=== PATIENT | male | born 1990 | race Caucasian/White ===

== ENCOUNTER 2016-03-01 11:47 | Emergency (ER) | payer OTHER ==
--- NOTE | 2016-03-01 13:12 | EDDOCDS ---
Nurse's Notes [facility] Name: Abel Cedeño Age: 25 yrs Sex: Male : 1990 Arrival Date: 03/01/2016 Time: 11:47 Bed TR7 Private MD: No Pcp Diagnosis: Acute nasopharyngitis [common cold] Presentation: 03/01 11:51 Presenting complaint: Patient states: he has had a sore throat and stuffy nose for a kcs couple of days. Risk factors: Stridor is not present. Drooling is not present. Shortness of breath is not present. Cellulitis is not present. Adult Sepsis Screening: The patient does not have new or worsening altered mentation. Patient's respiratory rate is less than 22. Systolic blood pressure is greater than 100. Patient has a qSOFA score of 0- Negative Sepsis Screen. Suicide/Homicide risk assessment- the patient denies having any suicidal and/or homicidal ideations and does not present with any other emotional, behavioral or mental health complaints. Status: Patient is not a guest services attendant or dependent. Transition of care: patient was not received from another setting of care. 11:51 Acuity: PINKY Level 4 kcs 11:51 Method Of Arrival: Walkin/Carried/Asstd kcs Triage Assessment: 11:52 General: Appears comfortable, well developed, well nourished, well groomed, Behavior is kcs cooperative, pleasant. Pain: Location: throat Pain currently is 8 out of 10 on a pain scale. HIV screening NA for this visit Offered previously. Neurological: Level of Consciousness is awake, alert. Respiratory: Airway is patent Respiratory effort is even, unlabored, Respiratory pattern is regular, symmetrical. Derm: Skin is intact, is healthy with good turgor, Skin is dry, Skin is normal. Historical: - Allergies: No known drug Allergies; - Home Meds: 1. none - PMHx: none; - PSHx: Surgical scar on right hip from unknown surgery as infant; - Social history: Smoking status: Patient states was never smoker of tobacco. No barriers to communication noted, The patient speaks fluent Armenian. - : The pt / caregiver states he / she is not on anticoagulants. Home medication list is obtained from the patient. - Exposure Risk Screening:: None identified. Vital Signs: 11:48 BP 138 / 71; Pulse 93; Resp 16; Temp 98.9; Pulse Ox 99% ; Weight 83.91 kg; Height 5 ft. cmb 9 in. (175.26 cm); Pain 8/10; 11:48 Body Mass Index 27.32 (83.91 kg, 175.26 cm) cmb Vitals: 11:48 Log In Time: March 01, 2016 at 11:47. cmb ED Course: 11:48 Patient visited by Mikaela Barlow. cmb 11:48 Patient moved to Waiting cmb 11:50 Patient moved to Pre RCE cmb 11:52 Triage Initiated kcs 11:54 No Pcp is Private Physician. cmb 12:36 Patient moved to Triage 2 ar3 12:37 Nando Ward PA is PHCP. btw 12:37 Sol Botello MD is Attending Physician. btw 12:37 Patient visited by Nando Ward PA. btw 12:54 Patient name changed from Abel\S\Irvin\S\Davidson\S\ to Abel\S\Dima\S\Davidson. EDMS 12:55 [place] [place] was scanned into [employer] and attached to record. pm4 13:11 Patient moved to TR7 ar3 Order Results: There are currently no results for this order. Outcome: 12:45 Discharge ordered by Provider. btw 13:12 Patient left the ED. maurice Signatures: Dispatcher [employer] EDMS Munira Daniels RN RN kcs Ashley Gray, SPIRAL WINDING MACHINE HELPER SPIRAL WINDING MACHINE HELPER ar3 Nando Ward PA PA btw Mikaela Barlow cmb Andrea Randle, Reg Reg pm4 MTDD
--- NOTE | 2016-03-01 13:12 | EDDOCDS ---
Physician Documentation [facility] Name: Abel Cedeño Age: 25 yrs Sex: Male : 1990 Arrival Date: 03/01/2016 Time: 11:47 Bed TR7 Private MD: No Pcp Disposition: 03/01/16 12:45 Discharged to Home/Self Care. Impression: Acute nasopharyngitis [common cold]. - Condition is Stable. - Discharge Instructions: Upper Respiratory Infection, Adult, Viral Infections, Cool Mist Vaporizers. - Medication Reconciliation, Local Pharmacy Hours form. - Follow up: Private Physician; When: Call to arrange an appointment; Reason: Further diagnostic work-up, Recheck today's complaints, Continuance of care. - Problem is new. - Symptoms are unchanged. Historical: - Allergies: No known drug Allergies; - Home Meds: 1. none - PMHx: none; - PSHx: Surgical scar on right hip from unknown surgery as infant; - Social history: Smoking status: Patient states was never smoker of tobacco. No barriers to communication noted, The patient speaks fluent Welsh. - : The pt / caregiver states he / she is not on anticoagulants. Home medication list is obtained from the patient. - Exposure Risk Screening:: None identified. Vital Signs: 03/01 11:48 BP 138 / 71; Pulse 93; Resp 16; Temp 98.9; Pulse Ox 99% ; Weight 83.91 kg / 184.99 lbs; cmb Height 5 ft. 9 in. (175.26 cm); Pain 8/10; 11:48 Body Mass Index 27.32 (83.91 kg, 175.26 cm) cmb MDM: 12:55 [facility] Payment Agreement was scanned into [employer] and attached to record. pm4 12:55 Financial registration complete. pm4 Signatures: Munira Daniels RN RN Nando Camara PA PA btw Andrea Randle, Reg Reg pm4 The chart was reviewed and I authenticate all verbal orders and agree with the evaluation and treatment provided.Attachments: 12:55 [place] [place] pm4 MTDD
--- NOTE | 2016-03-03 14:13 | EDDOCDS ---
Physician Documentation [facility] Name: Abel Cedeño Age: 25 yrs Sex: Male : 1990 Arrival Date: 03/01/2016 Time: 11:47 Bed TR7 Private MD: No Pcp Disposition: 03/01/16 12:45 Discharged to Home/Self Care. Impression: Acute nasopharyngitis [common cold]. - Condition is Stable. - Discharge Instructions: Upper Respiratory Infection, Adult, Viral Infections, Cool Mist Vaporizers. - Medication Reconciliation, Local Pharmacy Hours form. - Follow up: Private Physician; When: Call to arrange an appointment; Reason: Further diagnostic work-up, Recheck today's complaints, Continuance of care. - Problem is new. - Symptoms are unchanged. Historical: - Allergies: No known drug Allergies; - Home Meds: 1. none - PMHx: none; - PSHx: Surgical scar on right hip from unknown surgery as infant; - Social history: Smoking status: Patient states was never smoker of tobacco. No barriers to communication noted, The patient speaks fluent Serbian. - Family history: Not pertinent. - : The pt / caregiver states he / she is not on anticoagulants. Home medication list is obtained from the patient. - Exposure Risk Screening:: None identified. Vital Signs: 03/01 11:48 BP 138 / 71; Pulse 93; Resp 16; Temp 98.9; Pulse Ox 99% ; Weight 83.91 kg / 184.99 lbs; cmb Height 5 ft. 9 in. (175.26 cm); Pain 8/10; 11:48 Body Mass Index 27.32 (83.91 kg, 175.26 cm) cmb MDM: 12:55 [facility] [place] was scanned into [employer] and attached to record. pm4 12:55 Financial registration complete. pm4 03/02 09:37 T-Sheet-- Draft Copy was scanned into [employer] and attached to record. gb Signatures: Munira Daniels RN RN Micheline Castellanos, Reg Reg gb Nando Ward PA PA btw Andrea Randle, Reg Reg pm4 The chart was reviewed and I authenticate all verbal orders and agree with the evaluation and treatment provided.Attachments: 03/01 12:55 [facility] Payment Agreement pm4 03/02 09:37 T-Sheet-- Draft Copy gb Chart Complete MTDD
--- NOTE | 2016-03-03 14:13 | EDDOCDS ---
Physician Documentation [facility] Name: Abel Cedeño Age: 25 yrs Sex: Male : 1990 Arrival Date: 03/01/2016 Time: 11:47 Bed TR7 Private MD: No Pcp Disposition: 03/01/16 12:45 Discharged to Home/Self Care. Impression: Acute nasopharyngitis [common cold]. - Condition is Stable. - Discharge Instructions: Upper Respiratory Infection, Adult, Viral Infections, Cool Mist Vaporizers. - Medication Reconciliation, Local Pharmacy Hours form. - Follow up: Private Physician; When: Call to arrange an appointment; Reason: Further diagnostic work-up, Recheck today's complaints, Continuance of care. - Problem is new. - Symptoms are unchanged. Historical: - Allergies: No known drug Allergies; - Home Meds: 1. none - PMHx: none; - PSHx: Surgical scar on right hip from unknown surgery as infant; - Social history: Smoking status: Patient states was never smoker of tobacco. No barriers to communication noted, The patient speaks fluent Welsh. - Family history: Not pertinent. - : The pt / caregiver states he / she is not on anticoagulants. Home medication list is obtained from the patient. - Exposure Risk Screening:: None identified. Vital Signs: 03/01 11:48 BP 138 / 71; Pulse 93; Resp 16; Temp 98.9; Pulse Ox 99% ; Weight 83.91 kg / 184.99 lbs; cmb Height 5 ft. 9 in. (175.26 cm); Pain 8/10; 11:48 Body Mass Index 27.32 (83.91 kg, 175.26 cm) cmb MDM: 12:55 [facility] [place] Payment Agreement was scanned into [employer] and attached to record. pm4 12:55 Financial registration complete. pm4 03/02 09:37 T-Sheet-- Draft Copy was scanned into [employer] and attached to record. gb Signatures: Munira Daniels RN RN Micheline Castellanos, Reg Reg gb Nando Ward PA PA btw Andrea Randle, Reg Reg pm4 The chart was reviewed and I authenticate all verbal orders and agree with the evaluation and treatment provided.Attachments: 03/01 12:55 [facility] Payment Agreement pm4 03/02 09:37 T-Sheet-- Draft Copy gb Chart Complete MTDD
--- NOTE | 2016-03-03 14:13 | EDDOCDS ---
Nurse's Notes [facility] Name: Abel Cedeño Age: 25 yrs Sex: Male : 1990 Arrival Date: 03/01/2016 Time: 11:47 Bed TR7 Private MD: No Pcp Diagnosis: Acute nasopharyngitis [common cold] Presentation: 03/01 11:51 Presenting complaint: Patient states: he has had a sore throat and stuffy nose for a kcs couple of days. Risk factors: Stridor is not present. Drooling is not present. Shortness of breath is not present. Cellulitis is not present. Adult Sepsis Screening: The patient does not have new or worsening altered mentation. Patient's respiratory rate is less than 22. Systolic blood pressure is greater than 100. Patient has a qSOFA score of 0- Negative Sepsis Screen. Suicide/Homicide risk assessment- the patient denies having any suicidal and/or homicidal ideations and does not present with any other emotional, behavioral or mental health complaints. Status: Patient is not a service delivery consultant or dependent. Transition of care: patient was not received from another setting of care. 11:51 Acuity: PINKY Level 4 kcs 11:51 Method Of Arrival: Walkin/Carried/Asstd kcs Triage Assessment: 11:52 General: Appears comfortable, well developed, well nourished, well groomed, Behavior is kcs cooperative, pleasant. Pain: Location: throat Pain currently is 8 out of 10 on a pain scale. HIV screening NA for this visit Offered previously. Neurological: Level of Consciousness is awake, alert. Respiratory: Airway is patent Respiratory effort is even, unlabored, Respiratory pattern is regular, symmetrical. Derm: Skin is intact, is healthy with good turgor, Skin is dry, Skin is normal. Historical: - Allergies: No known drug Allergies; - Home Meds: 1. none - PMHx: none; - PSHx: Surgical scar on right hip from unknown surgery as infant; - Social history: Smoking status: Patient states was never smoker of tobacco. No barriers to communication noted, The patient speaks fluent Kinyarwanda. - Family history: Not pertinent. - : The pt / caregiver states he / she is not on anticoagulants. Home medication list is obtained from the patient. - Exposure Risk Screening:: None identified. Screenin:10 Screening information is obtained from the patient. Fall risk: No risks identified. kcs Assistance ADL's: requires no assistance with activities of daily living. Abuse/DV Screen: The patient / caregiver reports he/she is: not in a situation that causes fear, pain or injury. Nutritional screening: No deficits noted. Advance Directives: Currently, there is no health care proxy. home support is adequate. Assessment: 13:10 General: Appears comfortable, well developed, well nourished, well groomed, Behavior is kcs cooperative, pleasant. Pain: Complains of pain in throat. Awake, alert, oriented. Skin warm and dry. Moves all extremities. Respirations unlabored. No apparent distress. The patient / caregiver is instructed regarding the plan of care and ED course. Physical assessment to be completed by PA/EDMD. 13:10 EENT: hoarse voice. kcs Vital Signs: 11:48 BP 138 / 71; Pulse 93; Resp 16; Temp 98.9; Pulse Ox 99% ; Weight 83.91 kg; Height 5 ft. cmb 9 in. (175.26 cm); Pain 8/10; 11:48 Body Mass Index 27.32 (83.91 kg, 175.26 cm) cmb Vitals: 11:48 Log In Time: March 01, 2016 at 11:47. cmb ED Course: 11:48 Patient visited by Mikaela Barlow. cmb 11:48 Patient moved to Waiting cmb 11:50 Patient moved to Pre RCE cmb 11:52 Triage Initiated kcs 11:54 No Pcp is Private Physician. cmb 12:36 Patient moved to Triage 2 ar3 12:37 Nando Ward PA is PHCP. btw 12:37 Sol Botello MD is Attending Physician. btw 12:37 Patient visited by Nando Ward PA. btw 12:54 Patient name changed from Abel\S\Irvin\S\Davidson\S\ to Abel\S\Dima\S\Davidson. EDMS 12:55 [facility] [place] was scanned into [employer] and attached to record. pm4 13:10 Patient has correct armband on for positive identification. kcs 13:10 No IV's were initiated during this patient's visit. No procedures done that require kcs assistance. 13:11 Patient moved to TR7 ar3 03/02 09:37 T-Sheet-- Draft Copy was scanned into [employer] and attached to record. gb Order Results: There are currently no results for this order. Outcome: 03/01 12:45 Discharge ordered by Provider. btw 13:10 The following High Risk Discharge criteria are identified: None. Discharged to home kcs ambulatory. Condition: stable. Discharge instructions given to patient, Instructed on discharge instructions, follow up and referral plans. Demonstrated understanding of instructions, Pt was receptive of discharge instructions/ teaching. No special radiology studies were completed. 13:10 Discharge Assessment: Patient awake, alert and oriented x 3. No cognitive and/or kcs functional deficits noted. Patient verbalized understanding of disposition instructions. Patient awake and alert. patient administered narcotics - no. The following High Risk Discharge criteria are identified: None. Discharged to home ambulatory. Property sent home with patient. 13:12 Patient left the ED. kcs Signatures: Dispatcher [employer] EDMunira Ramirez RN RN kcs Micheline Zuluaga, Reg Reg gb Ashley Gray, ALL SOURCE INTELLIGENCE ANALYST ALL SOURCE INTELLIGENCE ANALYST ar3 Nando Ward, AMBROCIO PA btw Mikaela Barlow cmb Andrea Randle, Reg Reg pm4 Corrections: (The following items were deleted from the chart) 19:16 19:15 EENT: hoarse voice. maurice richards Chart Complete MTDD
== END 2016-03-01 13:12 | disposition home or self-care (01) ==
LOC: M ED 11:47
DX: J06.9 Acute upper respiratory infection, unspecified (principal); B34.9 Viral infection, unspecified

== ENCOUNTER 2016-05-15 19:20 | Emergency (ER) | payer OTHER ==
[~2016-05-15] VITALS: Ht 172.7 cm; Wt 97.5 kg
[2016-05-15 19:21] VITALS: BP 129/74
== END 2016-05-15 20:05 | disposition left against medical advice (07) ==
LOC: M ED 20:04
DX: H92.09 Otalgia, unspecified ear (principal); Z53.21 Procedure and treatment not carried out due to patient leaving prior to being seen by health care provider

== ENCOUNTER 2018-04-27 03:44 | Emergency (ER) | payer OTHER ==
[~2018-04-27] VITALS: Ht 167.6 cm; Wt 97.3 kg
[2018-04-27] MEDS ORDERED: KETOROLAC 30 MG/ML VIAL (J1885) IV ONE (05:45)
[2018-04-27] MEDS ORDERED: NS 1,000 ML IV ONE (05:45)
[2018-04-27] MEDS ORDERED: ONDANSETRON 4MG/2ML VIAL (J2405) IV ONE (05:45)
[2018-04-27 06:12] LABS: BASO % 0.5 % (0.0-1.0); EOS # 0.2 10^3/uL (0.0-0.50); EOS % 2.2 % (0.0-3.0); HEMATOCRIT 42.8 % (42.0-52.0); HEMOGLOBIN 14.6 g/dl (13.5-17.5); LYMPH # 2.8 10^3/uL (1.5-6.5); LYMPH % 32.1 % (24.0-44.0); MEAN CORPUSCULAR HEMOGLOBIN 30.7 pg (27.0-33.0); MEAN CORPUSCULAR HGB CONC 34.1 g/dl (32.0-36.5); MEAN CORPUSCULAR VOLUME 89.9 fl (80.0-96.0); MONO # 0.5 10^3/uL (0.0-0.8); MONO % 5.6 % (0.0-5.0); NEUTROPHILS # 5.2 10^3/uL (1.8-7.7); NEUTROPHILS % 59.1 % (36.0-66.0); PLATELET COUNT, AUTOMATED 306 10^3/uL (150-450); RED BLOOD COUNT 4.76 10^6/uL (4.30-6.10); WHITE BLOOD COUNT 8.8 10^3/uL (4.0-10.0)
[2018-04-27 06:37] LABS: ALBUMIN 3.9 GM/DL (3.2-5.2); ALT/SGPT 36 U/L (12-78); BILIRUBIN,DIRECT 0.2 MG/DL (0.0-0.2); BILIRUBIN,TOTAL 0.7 MG/DL (0.2-1.0); BLOOD UREA NITROGEN 14 MG/DL (7-18); CARBON DIOXIDE LEVEL 29 MEQ/L (21-32); CHLORIDE LEVEL 107 MEQ/L (98-107); CREATININE FOR GFR 0.76 MG/DL (0.70-1.30); GLOMERULAR FILTRATION RATE > 60.0 (>60); GLUCOSE, FASTING 106 MG/DL (70-100); LIPASE 108 U/L (73-393); POTASSIUM SERUM 4.1 MEQ/L (3.5-5.1); SODIUM LEVEL 142 MEQ/L (136-145); TOTAL PROTEIN 7.2 GM/DL (6.4-8.2)
[2018-04-27] MEDS ORDERED: ISOVUE-370 76% 100ML VIAL (Q9967) As Ordered ONE (06:43)
--- NOTE | 2018-04-27 07:37 | REPVR ---
EXAM: CT Abdomen and Pelvis With Contrast EXAM DATE/TIME: 04/27/2018 6:39 AM CLINICAL HISTORY: 27 years old, male; Pain; Abdominal pain; Localized; Left lower quadrant (llq); Additional info: Llq abd pain TECHNIQUE: Axial computed tomography images of the abdomen and pelvis with intravenous contrast. All CT scans at this facility use at least one of these dose optimization techniques: automated exposure control; mA and/or kV adjustment per patient size (includes targeted exams where dose is matched to clinical indication); or iterative reconstruction. Coronal and sagittal reformatted images were created and reviewed. CONTRAST: Contrast Material: 100 ml of iso; Contrast Route: ac COMPARISON: No relevant prior studies available. FINDINGS: Lower thorax: No acute findings. ABDOMEN: Liver: Normal. No mass. Gallbladder and bile ducts: Normal. No calcified stones. No ductal dilation. Pancreas: Normal. No ductal dilation. Spleen: Normal. No splenomegaly. Adrenals: Normal. No mass. Kidneys and ureters: Normal. No hydronephrosis. Stomach and bowel: The colon is underdistended limiting its evaluation. There is mild descending colonic mild intramural infiltration with fat. There is questionable mild increased vascularity to the descending and rectosigmoid colon. Appendix: No evidence of appendicitis. PELVIS: Bladder: Unremarkable as visualized. Reproductive: Unremarkable as visualized. ABDOMEN and PELVIS: Intraperitoneal space: Normal. No free air. No significant fluid collection. Bones/joints: No acute fracture. No dislocation. Soft tissues: There is a small bilateral fat containing inguinal hernias. Vasculature: Normal. No abdominal aortic aneurysm. Lymph nodes: There are shotty small mesenteric lymph nodes. IMPRESSION: 1. Bilateral fat containing inguinal hernias. 2. Nonspecific mild descending colon intramural infiltration with fat coupled with questionable mild increase vascularity in the descending and rectosigmoid colon. Correlate clinically for chronic inflammatory colonic process such as IBD. 3. Nonspecific shotty mesenteric lymph nodes. These could be secondary to enteritis. Electronically signed by: Timothy Younger On 04/27/2018 07:37:28 AM
[2018-04-27 08:30] VITALS: BP 118/60
== END 2018-04-27 08:50 | disposition home or self-care (01) ==
LOC: M ED 03:44
DX: R10.9 Unspecified abdominal pain (principal)
CPT/HCPCS: 36415; 74177; 80048; 80076; 83690; 85025; 93041; 96374; 96375; 99284; J1885; J2405; Q9967

== ENCOUNTER → 2019-03-13 | Outpatient (REF) | payer OTHER ==
[2019-03-13 12:20] LABS: SEMEN APPEARANCE OPAQUE (OPAQUE); SEMEN VISCOSITY LIQUID (LIQUID); SEMEN VOLUME 3.3 ml (2.0-5.0); SEMEN pH 8.5 (7.0-8.0); SPERM CONCENTRATION 23.6 M/ml (>=15.0); WBC CONCENTRATION >1 M/ml (<=1 M/ml)
== END ==
LOC: M SMT 12:05
PROVIDERS: ATTEND Nurse Practitioner Family
DX: N46.9 Male infertility, unspecified (principal)

== ENCOUNTER → 2019-10-04 | Outpatient (REF) | payer OTHER | LOC: M LAB REF 08:34 | PROVIDERS: ATTEND Physician Assistant | DX: Z03.818 Encounter for observation for suspected exposure to other biological agents ruled out (principal); Z11.59 Encounter for screening for other viral diseases ==

== ENCOUNTER 2019-10-26 09:53 | Observation (INO) | payer OTHER ==
[~2019-10-26] VITALS: Ht 175.3 cm; Wt 104.9 kg
[2019-10-26 10:04] VITALS: BP 143/63
[2019-10-26] MEDS ORDERED: METOCLOPRAMIDE INJ 10MG/2ML VIAL (J2765 PER 1) IV ONE (10:15)
[2019-10-26 10:34] LABS: BASO % 0.3 % (0.0-1.0); EOS # 0.2 10^3/uL (0.0-0.5); EOS % 2.5 % (0.0-3.0); HEMATOCRIT 46.9 % (42.0-52.0); LYMPH # 2.2 10^3/uL (1.5-5.0); LYMPH % 24.6 % (24.0-44.0); MEAN CORPUSCULAR HEMOGLOBIN 30.2 pg (27.0-33.0); MEAN CORPUSCULAR HGB CONC 34.1 g/dl (32.0-36.5); MEAN CORPUSCULAR VOLUME 88.7 fl (80.0-96.0); MONO # 0.6 10^3/uL (0.0-0.8); MONO % 6.5 % (0.0-5.0); NEUTROPHILS # 5.8 10^3/uL (1.5-8.5); NEUTROPHILS % 65.8 % (36.0-66.0); PLATELET COUNT, AUTOMATED 339 10^3/uL (150-450); RED BLOOD COUNT 5.29 10^6/uL (4.30-6.10); WHITE BLOOD COUNT 8.8 10^3/uL (4.0-10.0)
--- NOTE | 2019-10-26 10:52 | REPVR ---
PROCEDURE INFORMATION: Exam: CT Head Without Contrast Exam date and time: 10/26/2019 10:24 AM Age: 28 years old Clinical indication: Other: Found unresponsive TECHNIQUE: Imaging protocol: Computed tomography of the head without contrast. Radiation optimization: All CT scans at this facility use at least one of these dose optimization techniques: automated exposure control; mA and/or kV adjustment per patient size (includes targeted exams where dose is matched to clinical indication); or iterative reconstruction. COMPARISON: No relevant prior studies available. FINDINGS: Brain: No hemorrhage. Unremarkable white matter. No mass effect. Ventricles: No ventriculomegaly. Bones/joints: No acute fracture. Sinuses: Visualized sinuses are unremarkable. No fluid levels. Mastoid air cells: Visualized mastoid air cells are well aerated. Soft tissues: Unremarkable. IMPRESSION: No acute intracranial abnormality. Electronically signed by: Jim Mcclain On 10/26/2019 10:52:25 AM
[2019-10-26 11:07] LABS: ALT/SGPT 61 U/L (12-78); BILIRUBIN,DIRECT 0.2 MG/DL (0.0-0.2); BILIRUBIN,TOTAL 0.9 MG/DL (0.2-1.0); BLOOD UREA NITROGEN 14 MG/DL (7-18); CALCIUM LEVEL 9.9 MG/DL (8.5-10.1); CARBON DIOXIDE LEVEL 29 MEQ/L (21-32); CHLORIDE LEVEL 106 MEQ/L (98-107); CREATININE FOR GFR 0.82 MG/DL (0.70-1.30); GLOMERULAR FILTRATION RATE > 60.0 (>60); GLUCOSE, FASTING 104 MG/DL (70-100); POTASSIUM SERUM 3.9 MEQ/L (3.5-5.1); SODIUM LEVEL 141 MEQ/L (136-145); TOTAL PROTEIN 7.9 GM/DL (6.4-8.2)
[2019-10-26 11:08] LABS: ACETAMINOPHEN LEVEL < 2.0 UG/ML (10.0-30.0); ALBUMIN 4.2 GM/DL (3.2-5.2); ETHYL ALCOHOL (ETHANOL) < 0.003 % (0.000-0.010); SALICYLATE LEVEL < 1.7 MG/DL (5.0-30.0)
--- NOTE | 2019-10-26 12:49 | REPVR ---
PROCEDURE INFORMATION: Exam: MR Head Without Contrast Exam date and time: 10/26/2019 12:00 PM Age: 28 years old Clinical indication: Other: Headache/unresponsive TECHNIQUE: Imaging protocol: MR of the head without contrast. COMPARISON: CT Head without contrast 10/26/2019 10:18 AM FINDINGS: Limitations: Study is degraded by patient motion artifact. Brain: There is questionable cortical restricted diffusion diffusely throughout both cerebral hemispheres, perhaps best seen in the right occipital lobe on image 19. While this study motion degraded, there is likely concomitant mild cortical edema. No evidence of acute hemorrhage. Ventricles: No ventriculomegaly. Bones/joints: Unremarkable. Sinuses: Mild paranasal sinus mucosal thickening. Mastoid air cells: No mastoid effusion. Orbits: Unremarkable. Soft tissues: Unremarkable. IMPRESSION: Questionable mild cortical restricted diffusion bilaterally, likely with mild cortical edema. This is nonspecific and can be seen in the setting of early anoxic brain injury, seizure related edema, and other etiologies. If the patient remains unresponsive, would consider short interval follow-up MRI. Electronically signed by: Jim Mcclain On 10/26/2019 12:48:45 PM
--- NOTE | 2019-10-26 13:50 | REPVR ---
PROCEDURE INFORMATION: Exam: MR Angiogram Head Without Contrast, Arteries Exam date and time: 10/26/2019 12:00 PM Age: 28 years old Clinical indication: Other: Headache/unresponsive TECHNIQUE: Imaging protocol: MR angiogram head without contrast. Exam focused on the arteries. 3D rendering (Not supervised by radiologist): MIP and/or 3D reconstructed images were created by the technologist. COMPARISON: CT Head without contrast 10/26/2019 10:18 AM FINDINGS: ANTERIOR CIRCULATION: Right internal carotid artery: Intracranial segment is patent with no significant stenosis. No aneurysm. Right middle cerebral artery: No occlusion or significant stenosis. No aneurysm. Right anterior cerebral artery: No occlusion or significant stenosis. No aneurysm. Left internal carotid artery: Intracranial segment is patent with no significant stenosis. No aneurysm. Left middle cerebral artery: No occlusion or significant stenosis. No aneurysm. Left anterior cerebral artery: No occlusion or significant stenosis. No aneurysm. POSTERIOR CIRCULATION: Right vertebral artery: No occlusion or significant stenosis. No aneurysm. Left vertebral artery: No occlusion or significant stenosis. No aneurysm. Basilar artery: No occlusion or significant stenosis. No aneurysm. Right posterior cerebral artery: No occlusion or significant stenosis. No aneurysm. Left posterior cerebral artery: No occlusion or significant stenosis. No aneurysm. IMPRESSION: No stenosis or occlusion. Electronically signed by: Jim Mcclain On 10/26/2019 13:49:50 PM
[2019-10-26 15:18] LABS: AMPHETAMINES LEVEL URINE NEGATIVE (NEGATIVE); BARBITURATES URINE NEGATIVE (NEGATIVE); BENZODIAZEPINES URINE NEGATIVE (NEGATIVE); CANNABINOIDS URINE NEGATIVE (NEGATIVE); COCAINE METABOLITE URINE NEGATIVE (NEGATIVE); METHADONE URINE NEGATIVE (NEGATIVE); OPIATES URINE NEGATIVE (NEGATIVE); PHENCYCLIDINE URINE NEGATIVE (NEGATIVE)
[2019-10-26] MEDS ORDERED: ACETAMINOPHEN TAB 650MG DOSE (2X325MG) PO PRN (16:00)
[2019-10-26 17:39] LABS: INR 0.98; PROTHROMBIN TIME 13.1 SECONDS (11.8-14.0)
[2019-10-26 17:40] LABS: PARTIAL THROMBOPLASTIN TIME 29.8 SECONDS (25.0-38.4)
--- NOTE | 2019-10-26 17:42 | HPEPDOC ---
[facility] Medical History & Physical Date of Admission Oct 26, 2019 Date of Service: Oct 26, 2019 Attending Physician: CARLOS ARECHIGA MD History and Physical CHIEF COMPLAINT: AMS HISTORY OF PRESENT ILLNESS: 28 y/o M with PMHx Obesity who presents with AMS. Pt notes he woke up at 6am, developed a right sided CARD, 5/10, non radiating, lasting 1 hr, no vision changes followed by his typical GERD related chest discomfort that typically happens after eating/drinking, which was midsternal, non radiating, non reproducible, non pleuritic. Pt does not recollect the rest of the morning; only remembers being in the ED. ED staff notes that girlfriend friend to wake him however he was unresponsive, for which EMS was called. Pt was lethargic with EMS, and started to slowly wake up in the ED. Denies tongue trauma/urinary/fecal incontinence. No prior events. Currently feels back to his baseline. Denies CP/SOB/palpitations. No N/V/abd pain at this time. In the ED, MRI notes mild cortical edema. Labs, initial workup negative. PAST MEDICAL HISTORY: As per HPI PAST SURGICAL HISTORY: Right hip plate SOCIAL HISTORY: Denies tobacco, alcohol, illicit drugs. FAMILY HISTORY: M- DM ALLERGIES: Please see below. REVIEW OF SYSTEMS: HEENT: Denies sore throat. +headache CARDIOVASCULAR: No palpitations RESPIRATORY: Denies shortness of breath/cough GASTROINTESTINAL: denies nausea/vomiting GENITOURINARY: Denies dysuria/urinary urgency. MUSCULOSKELETAL: Denies myalgias/arthralgias NEUROLOGICAL: Denies any focal weakness HOME MEDICATIONS: Please see below. PHYSICAL EXAMINATION: Vitals: (see below) General: No acute distress, laying comfortably in bed. HEENT: Moist mucous membranes. Neck: No JVD or lymphadenopathy Cardiac: RRR, No murmurs Pulm: Clear to auscultation b/l. No wheezing, rhonchi Abd: NT/ND + BS Ext: No edema or cyanosis Neuro: Strength 5/5 BUE and BLE. CN 2-12 intact. F to N intact Negative pronator drift. Negative Babinski. LABORATORY DATA: See below. IMAGING: MRA Head 10/26/19 IMPRESSION: No stenosis or occlusion. MRI Brain 10/26/19 IMPRESSION: Questionable mild cortical restricted diffusion bilaterally, likely with mild cortical edema. This is nonspecific and can be seen in the setting of early anoxic brain injury, seizure related edema, and other etiologies. If the patient remains unresponsive, would consider short interval follow-up MRI. ASSESSMENT/PLAN: 1. Unresponsiveness; altered alertness; ? Seizure. No focal findings on exam. MRI noted above. Discussed with who recommends repeat MRI tomorrow, EEG/LP On Monday. Current labs unremarkable; Utox negative. Will also check CXR, UA, Bld cx, B12, ammonia, LFTs. Neuro checks q8h. 2. H/o GERD - f/u outpt with GI. PPI DVT Prophy: Lovenox Update: Pt notes at 5pm that he wants to leave AMA. I encouraged him to stay and have the workup recommended by neurology. He tells me he will call Dr. Robbins's office on Monday and make an appointment. I have discussed risks of leaving including unresponsiveness, stroke, MT, and he verbalized understanding. I also explained benefits of staying including repeat MRI brain tomorrow, EEG, possible LP. He was not interested. He wanted to leave with his fiance/girlfriend before she went to work at 6pm. I spoke with this father Fernando Cedeño, and he notes he also tried to convince him to stay. Pt is AAOx3, with insight and adequate judgement. He is able to verbalize the events that happened prior to his unresponsiveness, the abnormal MRI brain results, and the anticipated workup while he's admitted. He has still decided to leave AMA. Time spent on admission/discharge 1hr. Vital Signs Vital Signs Date Time Temp Pulse Resp B/P (MAP) Pulse Ox O2 Delivery O2 Flow Rate FiO2 10/26/19 10:04 96 143/63 10/26/19 09:55 98.4 16 98 Room Air Laboratory Data Labs 24H Laboratory Tests 2 10/26/19 10:10: Immature Granulocyte % (Auto) 0.3, Neutrophils (%) (Auto) 65.8, Lymphocytes (%) (Auto) 24.6, Monocytes (%) (Auto) 6.5H, Eosinophils (%) (Auto) 2.5, Basophils (%) (Auto) 0.3, Neutrophils # (Auto) 5.8, Lymphocytes # (Auto) 2.2, Monocytes # (Auto) 0.6, Eosinophils # (Auto) 0.2, Basophils # (Auto) 0.0, Nucleated Red B lood Cells % (auto) 0.0, Anion Gap 6L, Glomerular Filtration Rate > 60.0, Calcium Level 9.9, Total Bilirubin 0.9, Direct Bilirubin 0.2, Aspartate Amino Transf (AST/SGOT) 29, Alanine Aminotransferase (ALT/SGPT) 61, Alkaline Phosphatase 80, Total Protein 7.9, Albumin 4.2, Albumin/Globulin Ratio 1.1, T hyroid Stimulating Hormone (TSH) 2.280, Salicylates Level < 1.7L, Acetaminophen Level < 2.0L, Ethyl Alcohol Level < 0.003 10/26/19 14:25: Urine Opiates Screen NEGATIVE, Urine Methadone Screen NEGATIVE, Urine Barbiturates Screen NEGATIVE, Urine Phencyclidine Screen NEGATIVE, Urine Amphetamines Screen NEGATIVE, Urine Benzodiazepines Screen NEGATIVE, Urine Cocaine Metabolite Screen NEGATIVE, Urine Cannabinoids Screen NEGATIVE CBC/BMP Laboratory Tests 10/26/19 10:10 Home Medications No Active Prescriptions or Reported Meds Allergies Coded Allergies: No Known Allergies (Unverified , 05/15/16) A-FIB/CHADSVASC A-FIB History Current/History of A-Fib/PAF?: No CARLOS ARECHIGA MD Oct 26, 2019 17:25
[2019-10-26 17:53] LABS: CK-MB VALUE MASS < 1.0 NG/ML (<3.6); CPK CREATINE PHOSPHOKINASE 140 U/L (39-308); MB/CK RELATIVE INDEX 0.71 (< OR =4); TROPONIN I < 0.02 NG/ML (< 0.10)
[2019-10-26] MEDS ORDERED: ENOXAPARIN 40MG/0.4ML SYRINGE (J1650 PER 10MG) SC SCH (21:00)
[2019-10-28 10:32] LABS: FOLATE > 24.0 NG/ML (>5.4); VITAMIN B12 LEVEL 500 PG/ML (247-911)
--- NOTE | 2019-11-07 16:26 | ECGEPIP ---
[facility] - ED Test Date: 2019-10-26 Pat Name: SARI BLISS Department: Room: - Gender: Male Bullet Maker: JANIE : 1990 Requested By: Sol Botello Order Number: [id number] Reading MD: Timur Pichardo Measurements Intervals Farrell Rate: 100 P: 21 DC: 146 QRS: 11 QRSD: 94 T: 32 QT: 347 QTc: 449 Interpretive Statements SINUS TACHYCARDIA MINIMAL VOLTAGE CRITERIA FOR LVH, CONSIDER NORMAL VARIANT NONSPECIFIC T-WAVE ABNORMALITY ABNORMAL RHYTHM ECG SEE DOWNTIME SCANNED REPORT
== END 2019-10-26 17:20 | disposition home or self-care (01) ==
LOC: EDBD 09:53 → M ED 09:53 → M ED INP 09:54 → ENRESERV 16:22
PROVIDERS: ADMIT Internal Medicine; ATTEND Internal Medicine
DX: R41.82 Altered mental status, unspecified (principal); R51 Headache; K21.9 Gastro-esophageal reflux disease without esophagitis; E66.9 Obesity, unspecified; R60.0 Localized edema; Z53.21 Procedure and treatment not carried out due to patient leaving prior to being seen by health care provider
CPT/HCPCS: 36415; 70450; 70544; 70551; 80048; 80076; 80307; 81001; 82140; 82550; 82553; 82607; 82746; 84443; 85025; 85610; 85730; 87040; 93005; 93041; 94760; 96374; 99285; G0480; J2765